=== PATIENT | male | born 1955 | race African-American/Black ===

== ENCOUNTER → 2019-09-24 | Outpatient (CLI) | payer OTHER | LOC: HYPER 10:31 | DX: E11.622 Type 2 diabetes mellitus with other skin ulcer (principal); L97.812 Non-pressure chronic ulcer of other part of right lower leg with fat layer exposed; L84 Corns and callosities; I89.0 Lymphedema, not elsewhere classified; I10 Essential (primary) hypertension; E11.43 Type 2 diabetes mellitus with diabetic autonomic (poly)neuropathy; E11.65 Type 2 diabetes mellitus with hyperglycemia; E34.9 Endocrine disorder, unspecified; G95.9 Disease of spinal cord, unspecified; G89.4 Chronic pain syndrome; K21.9 Gastro-esophageal reflux disease without esophagitis; F32.9 Major depressive disorder, single episode, unspecified; F41.9 Anxiety disorder, unspecified; Z85.89 Personal history of malignant neoplasm of other organs and systems; Z79.84 Long term (current) use of oral hypoglycemic drugs; Z79.4 Long term (current) use of insulin; Z89.411 Acquired absence of right great toe ==

== ENCOUNTER → 2019-10-01 | Outpatient (CLI) | payer OTHER | LOC: HYPER 13:18 | DX: E11.622 Type 2 diabetes mellitus with other skin ulcer (principal); L97.812 Non-pressure chronic ulcer of other part of right lower leg with fat layer exposed; E11.43 Type 2 diabetes mellitus with diabetic autonomic (poly)neuropathy; E11.65 Type 2 diabetes mellitus with hyperglycemia; I89.0 Lymphedema, not elsewhere classified; L84 Corns and callosities; I10 Essential (primary) hypertension; E34.9 Endocrine disorder, unspecified; G95.9 Disease of spinal cord, unspecified; Z79.4 Long term (current) use of insulin; G89.4 Chronic pain syndrome; F41.9 Anxiety disorder, unspecified; Z85.89 Personal history of malignant neoplasm of other organs and systems; Z89.411 Acquired absence of right great toe ==

== ENCOUNTER → 2019-10-08 | Outpatient (CLI) | payer OTHER | LOC: HYPER 14:14 | DX: E11.622 Type 2 diabetes mellitus with other skin ulcer (principal); L97.812 Non-pressure chronic ulcer of other part of right lower leg with fat layer exposed; L84 Corns and callosities; I89.0 Lymphedema, not elsewhere classified; E11.43 Type 2 diabetes mellitus with diabetic autonomic (poly)neuropathy; E11.65 Type 2 diabetes mellitus with hyperglycemia; E34.9 Endocrine disorder, unspecified; I10 Essential (primary) hypertension; G95.9 Disease of spinal cord, unspecified; G89.4 Chronic pain syndrome; K21.9 Gastro-esophageal reflux disease without esophagitis; F41.9 Anxiety disorder, unspecified; F32.9 Major depressive disorder, single episode, unspecified; Z85.89 Personal history of malignant neoplasm of other organs and systems; Z79.84 Long term (current) use of oral hypoglycemic drugs; Z79.4 Long term (current) use of insulin; Z89.411 Acquired absence of right great toe ==

== ENCOUNTER → 2019-10-15 | Outpatient (CLI) | payer OTHER | LOC: HYPER 13:12 | DX: E11.622 Type 2 diabetes mellitus with other skin ulcer (principal); L97.812 Non-pressure chronic ulcer of other part of right lower leg with fat layer exposed; I89.0 Lymphedema, not elsewhere classified; E11.43 Type 2 diabetes mellitus with diabetic autonomic (poly)neuropathy; E11.65 Type 2 diabetes mellitus with hyperglycemia; G95.9 Disease of spinal cord, unspecified; I10 Essential (primary) hypertension; E34.9 Endocrine disorder, unspecified; G89.4 Chronic pain syndrome; F41.9 Anxiety disorder, unspecified; Z79.4 Long term (current) use of insulin ==

== ENCOUNTER → 2019-10-22 | Outpatient (CLI) | payer OTHER | LOC: HYPER 13:16 | DX: E11.622 Type 2 diabetes mellitus with other skin ulcer (principal); L97.812 Non-pressure chronic ulcer of other part of right lower leg with fat layer exposed; L84 Corns and callosities; E11.65 Type 2 diabetes mellitus with hyperglycemia; E11.43 Type 2 diabetes mellitus with diabetic autonomic (poly)neuropathy; E34.9 Endocrine disorder, unspecified; I89.0 Lymphedema, not elsewhere classified; I10 Essential (primary) hypertension; G95.9 Disease of spinal cord, unspecified; G89.4 Chronic pain syndrome; K21.9 Gastro-esophageal reflux disease without esophagitis; F41.9 Anxiety disorder, unspecified; F32.9 Major depressive disorder, single episode, unspecified; Z85.89 Personal history of malignant neoplasm of other organs and systems; Z79.84 Long term (current) use of oral hypoglycemic drugs; Z79.4 Long term (current) use of insulin; Z89.411 Acquired absence of right great toe ==

== ENCOUNTER 2019-11-05 16:04 | Emergency (ER) | payer OTHER ==
[~2019-11-05] VITALS: Ht 175.3 cm; Wt 109.8 kg
[2019-11-05 17:50] VITALS: BP 132/80
== END 2019-11-05 17:50 | disposition home or self-care (01) ==
LOC: ER 16:04
DX: M79.89 Other specified soft tissue disorders (principal); M79.605 Pain in left leg; I10 Essential (primary) hypertension; E11.9 Type 2 diabetes mellitus without complications

== ENCOUNTER → 2019-11-05 | Outpatient (CLI) | payer OTHER | LOC: HYPER 13:02 | DX: E11.622 Type 2 diabetes mellitus with other skin ulcer (principal); L97.812 Non-pressure chronic ulcer of other part of right lower leg with fat layer exposed; E11.43 Type 2 diabetes mellitus with diabetic autonomic (poly)neuropathy; E11.65 Type 2 diabetes mellitus with hyperglycemia; I89.0 Lymphedema, not elsewhere classified; L84 Corns and callosities; I10 Essential (primary) hypertension; E34.9 Endocrine disorder, unspecified; G95.9 Disease of spinal cord, unspecified; G89.4 Chronic pain syndrome; F41.9 Anxiety disorder, unspecified; F32.9 Major depressive disorder, single episode, unspecified; Z79.4 Long term (current) use of insulin; Z89.411 Acquired absence of right great toe ==

== ENCOUNTER → 2019-11-12 | Outpatient (CLI) | payer OTHER | LOC: HYPER 13:07 | DX: E11.622 Type 2 diabetes mellitus with other skin ulcer (principal); L97.812 Non-pressure chronic ulcer of other part of right lower leg with fat layer exposed; E11.43 Type 2 diabetes mellitus with diabetic autonomic (poly)neuropathy; E11.65 Type 2 diabetes mellitus with hyperglycemia; E34.9 Endocrine disorder, unspecified; G95.9 Disease of spinal cord, unspecified; G89.29 Other chronic pain; I89.0 Lymphedema, not elsewhere classified; I10 Essential (primary) hypertension; K21.9 Gastro-esophageal reflux disease without esophagitis; F41.9 Anxiety disorder, unspecified; F32.9 Major depressive disorder, single episode, unspecified; Z85.89 Personal history of malignant neoplasm of other organs and systems; Z79.84 Long term (current) use of oral hypoglycemic drugs; Z89.411 Acquired absence of right great toe; Z79.4 Long term (current) use of insulin; Z86.73 Personal history of transient ischemic attack (TIA), and cerebral infarction without residual deficits ==

== ENCOUNTER → 2020-03-05 | Outpatient (CLI) | payer MEDICARE | LOC: HYPER 02-24 13:21 | PROVIDERS: ATTEND Emergency Medicine | DX: E11.622 Type 2 diabetes mellitus with other skin ulcer (principal); L97.812 Non-pressure chronic ulcer of other part of right lower leg with fat layer exposed; S80.822D Blister (nonthermal), left lower leg, subsequent encounter; S80.821D Blister (nonthermal), right lower leg, subsequent encounter; E11.43 Type 2 diabetes mellitus with diabetic autonomic (poly)neuropathy; E11.65 Type 2 diabetes mellitus with hyperglycemia; I89.0 Lymphedema, not elsewhere classified; L84 Corns and callosities; I10 Essential (primary) hypertension; E34.9 Endocrine disorder, unspecified; G95.9 Disease of spinal cord, unspecified; F41.9 Anxiety disorder, unspecified; F32.9 Major depressive disorder, single episode, unspecified; Z79.4 Long term (current) use of insulin; X58.XXXD Exposure to other specified factors, subsequent encounter ==